=== PATIENT | female | born 1940 | race Caucasian/White ===

== ENCOUNTER → 2017-12-03 | Outpatient (CLI) | payer MEDICARE ==
[~2017-12-03] MED LIST: ASPIR 8181 MG PO; AVAPRO 150 MG150 MG PO; CIPRO500 MG PO; CRESTOR20 MG PO; LASIX 20 MG TAB20 MG PO; MEDROLDOSEPACK PO; METFORMIN HCL500 MG PO; NOHOMEMEDICATIONS; PEPCID20 MG PO
== END ==
LOC: M.ULTRA 09:59
DX: I73.9 Peripheral vascular disease, unspecified (principal); E11.9 Type 2 diabetes mellitus without complications; Z87.891 Personal history of nicotine dependence

== ENCOUNTER → 2018-04-19 | Outpatient (CLI) | payer MEDICARE | LOC: M.RAD 13:13 | DX: M47.816 Spondylosis without myelopathy or radiculopathy, lumbar region (principal); M16.0 Bilateral primary osteoarthritis of hip; M79.1 Myalgia ==

== ENCOUNTER → 2018-06-28 | Outpatient (CLI) | payer MEDICARE | LOC: M.RAD 12:56 | DX: R92.8 Other abnormal and inconclusive findings on diagnostic imaging of breast (principal) ==

== ENCOUNTER → 2018-07-05 | Outpatient (CLI) | payer MEDICARE | LOC: M.ULTRA 13:00 | DX: N63.20 Unspecified lump in the left breast, unspecified quadrant (principal) ==

== ENCOUNTER 2018-10-09 12:14 | Inpatient (IN) | payer MEDICARE ==
[~2018-10-09] VITALS: Ht 152.4 cm; Wt 80.7 kg
--- NOTE | ~2018-10-09 | CON ---
[address] [address] CONSULTATION Name: NELIA FARR Room: [address] IN .R.#: [id number] Admission: 10/09/18 Attend Phys: Miranda Corona Discharge: Date of : 44 Report #: [id number] THIS REPORT FOR: //name// CC: Dre Enrique DATE OF SERVICE: 10/11/2018 HISTORY OF PRESENT ILLNESS: This is a 78-year-old female patient who was evaluated by me for an episode of syncope. This patient states that she felt very hot. She was profusely sweating. She had no chest pain. She was conscious during this episode. She did not completely go out but almost fell out. There was no tonic-clonic activity. There was no postictal period and then, she returned back to her baseline. It happened in congregation and there was a physician in the restorationism and she examined the patient and asked her to go to the hospital. They did not have anything to check her blood pressure but apparently, the physician did see her pulse. Here, her blood pressure has been fluctuating a lot. It has been as low as 94 systolic and as high as 217 systolic. She has been followed by Cardiology and they are looking for any cardiological cause for the patient's symptoms. She was bradycardic at one time and her pulse was only 45. She never had this kind of episode and it was an unprovoked episode the best I understand. REVIEW OF SYSTEMS: Indicate that this patient had a cardiac history in the past. She also had cardiac surgeries in the past and she follows up with therapist's assistant at [facility]. She does have a history of knee replacement and as I understand, she had a history of hysterectomy and endarterectomy. That is from the records. She is on metformin as well as a cholesterol medication. She does not feel anxious and does not believe anxiety is a problem. Presently, she is back to her baseline and is not complaining of any eye, ENT, cardiac, respiratory, GI, , musculoskeletal, constitutional, dermatological, hematological, psychiatric, throat, allergic symptom, which are associated with present symptomatology. She does have a pretty significant cardiac history in the past. PAST MEDICAL HISTORY: Negative for this kind of spell or seizure. FAMILY HISTORY: Negative for early age stroke. SOCIAL HISTORY: She does not smoke or drink alcohol on a regular basis. PHYSICAL EXAMINATION: NEUROLOGICAL: Indicate the patient is alert, responsive and can follow simple commands. Her speech, concentration, fund of knowledge and memory is at her baseline. Cranial nerve examination 2 through 12 looks unremarkable. Neuromuscular examination is checked for strength, sensation, [place] [address] CONSULTATION Name: NELIA FARR Room: [address] IN [facility]#: [id number] Admission: 10/09/18 Attend Phys: Miranda Corona Discharge: Date of : 42 Report #: [id number] is symmetrical. There is no cerebellar sign. I could not look at the fundus. EXTREMITIES: Pulses are palpable. She has no edema, cyanosis or jaundice. CARDIAC: Examinations indicate that she had prior surgery. LUNGS: No respiratory difficulty or rhonchi was noticed. GENERAL: She is reasonably well-developed individual. HEENT: She does not have any dysmorphic features of eyes, ears and face. VITAL SIGNS: Her blood pressure is 140/53, respirations 16 and pulse has been low and it has gone into 40s. Temperature is 97.7. LABORATORY DATA: Indicates a white count of 8.7 and her sodium and potassium has been somewhat abnormal when she came in and when she is here. Her TSH was also normal. She did have a CTA of the head and neck that showed some stenosis on the right carotid but was otherwise unremarkable. She is very claustrophobic and thinking about the MRI. IMPRESSION AND RECOMMENDATIONS: The episode this patient had was most likely related to cardiac etiology. That may be vasovagal spell, but bradycardia can also be contributing. She does have a right carotid stenosis, but that appeared to be asymptomatic. She probably will follow up with vascular surgeons in that regard for monitoring that. I suggested MRI to complete the workup. She wants to think about that because she is pretty claustrophobic. She can get it done as an inpatient or get it done as an outpatient in open MRI if she cannot do it because the episode does not appear to be related to any neurological etiology. She will think about it and I talked to her in great detail about it and we will see what the therapist's assistant say and arrange an MRI to complete the workup. Thank you very much for this referral. By: 0951 47Damian Regan MD /patrick
--- NOTE | ~2018-10-09 | EEG ---
[address] [address] EEG STUDY REPORT Name: NELIA FARR Room: [address] IN [facility]#: [id number] Admission: 10/09/18 Attend Phys: Miranda Corona Discharge: Date of : 42 Report #: [id number] THIS REPORT FOR: //name// CC: Dre Enrique DATE OF SERVICE: 10/11/2018 This patient is being evaluated for near syncope. EEG was done by placing the electrodes by standard 10-20 system of electrode placement. Both referential and sequential montages were used for recording. Background activity in this patient's EEG is about 9 Hz and 20 microvolt. The patient became drowsy that is associated with bilateral slowing and vertex sharp waves. Photic stimulation is unremarkable. Throughout the record, no active epileptiform activity was noticed. IMPRESSION: This patient's EEG is within normal limit. Thank you very much for this referral. By: 1527 1537Damian Regan MD /patrick
[2018-10-09 12:19] VITALS: BP 185/59
[2018-10-09] MEDS ORDERED: HYDROCHLOROTHIA25 M2 PO (12:34)
[2018-10-09 13:04] LABS: ABSOLUTE BASOPHILS 0.1 thou/uL (0.0-0.2); ABSOLUTE EOSINOPHILS 0.2 thou/uL (0.0-0.7); ABSOLUTE MONOCYTES 0.7 thou/uL (0.0-1.2); ABSOLUTE NEUTROPHILS 6.2 thou/uL (1.6-8.1); BASOPHILS 0.8 %; EOSINOPHILS 2.1 %; HEMATOCRIT 39.1 % (37.0-47.0); HEMOGLOBIN 13.1 gm/dL (12.0-15.0); LYMPHOCYTES 22.3 %; MCH 28.9 pg (26.0-34.0); MCHC 33.5 g/dL (28.0-37.0); MCV 86.3 fL (80.0-100.0); MONOCYTES 7.1 %; NUCLEATED RBCS 0 /100WBC; PLATELET COUNT* 304 thou/uL (150-400); POLYS 67.7 %; RBC 4.53 mil/uL (4.20-5.00); RDW-CV 13.5 % (10.5-14.5); WBC 9.2 thou/uL (4.0-11.0)
[2018-10-09 13:16] LABS: ANION GAP 8 mmol/L (7-16); BUN 39 mg/dL (7-18); CALCIUM 9.5 mg/dL (8.5-10.1); CHLORIDE 99 mmol/L (98-107); CO2 26 mmol/L (21-32); GLUCOSE 126 mg/dL (70-99); POTASSIUM 4.5 mmol/L (3.5-5.1); SODIUM 133 mmol/L (136-145)
[2018-10-09 13:26] LABS: ALBUMIN 4.3 g/dL (3.4-5.0); ALKALINE PHOSPHATASE 101 U/L (46-116); LIPASE 289 U/L (73-393); NT-PRO BRAIN NAT PEPTIDE 1127 pg/mL (<300); SGOT 13 U/L (15-37); SGPT 20 U/L (30-65); TOTAL BILIRUBIN 0.5 mg/dL (<0.1-1.0); TOTAL PROTEIN 7.7 g/dL (6.4-8.2); TROPONIN-I LEVEL <0.06 ng/mL (<0.06)
[2018-10-09 13:41] LABS: URINE BILIRUBIN NEGATIVE (Negative); URINE BLOOD NEGATIVE (Negative); URINE CLARITY CLEAR; URINE COLOR YELLOW; URINE GLUCOSE-RANDOM NEGATIVE (Negative); URINE KETONES NEGATIVE (Negative); URINE LEUKOCYTES-REFLEX 1+ (Negative); URINE NITRITE-REFLEX NEGATIVE (Negative); URINE PROTEIN NEGATIVE (Negative); URINE SPECIFIC GRAVITY 1.015 (1.005-1.030); URINE UROBILINOGEN 0.2 E.U./dl (0.2-1.0)
[2018-10-09 13:49] LABS: SQUAMOUS 0-3 Few /LPF (0-3)
[2018-10-09 13:50] LABS: TRANSITIONAL EPITHEL CELL 0-3 Few /LPF (None Seen); WBC CLUMPS Few (None Seen)
[2018-10-09 13:51] LABS: CRYSTALS None Seen /LPF (None Seen); HYALINE CASTS 0-3 Few /LPF (None Seen); MUCUS 0-3 Light strn/LPF (None Seen); URINE RBC 0-2 Rare /HPF (0-2); URINE WBC-REFLEX 6-15 Few /HPF (0-5)
[2018-10-09 16:15] VITALS: BP 166/72
[2018-10-09 17:48] VITALS: BP 217/53
[2018-10-09 20:00] VITALS: BP 94/56
[2018-10-09 23:30] VITALS: BP 149/77
[2018-10-10 03:50] VITALS: BP 122/46
[2018-10-10 08:00] VITALS: BP 109/54
[2018-10-10 08:50] LABS: ABSOLUTE BASOPHILS 0.1 thou/uL (0.0-0.2); ABSOLUTE EOSINOPHILS 0.2 thou/uL (0.0-0.7); ABSOLUTE MONOCYTES 0.6 thou/uL (0.0-1.2); ABSOLUTE NEUTROPHILS 5.8 thou/uL (1.6-8.1); BASOPHILS 0.9 %; EOSINOPHILS 2.4 %; HEMATOCRIT 37.9 % (37.0-47.0); HEMOGLOBIN 12.7 gm/dL (12.0-15.0); LYMPHOCYTES 22.9 %; MCH 29.1 pg (26.0-34.0); MCHC 33.4 g/dL (28.0-37.0); MCV 86.9 fL (80.0-100.0); MONOCYTES 7.5 %; MPV 8.4 fl. (7.2-11.1); NUCLEATED RBCS 0 /100WBC; PLATELET COUNT* 282 thou/uL (150-400); POLYS 66.3 %; RBC 4.36 mil/uL (4.20-5.00); RDW-CV 13.5 % (10.5-14.5); WBC 8.7 thou/uL (4.0-11.0)
[2018-10-10 09:06] LABS: ALBUMIN 3.9 g/dL (3.4-5.0); ALKALINE PHOSPHATASE 94 U/L (46-116); ANION GAP 8 mmol/L (7-16); BUN 32 mg/dL (7-18); CALCIUM 9.4 mg/dL (8.5-10.1); CHLORIDE 101 mmol/L (98-107); CHOLESTEROL 181 mg/dL (<200); CO2 25 mmol/L (21-32); CREATININE 0.9 mg/dL (0.6-1.3); GLUCOSE 137 mg/dL (70-99); HDL CHOLESTEROL 57 mg/dL (>40); LDL CHOLESTEROL 106 mg/dL (<100); SGOT 11 U/L (15-37); SGPT 17 U/L (30-65); SODIUM 134 mmol/L (136-145); TC:HDL 3.2 Ratio (Not establshd); TOTAL BILIRUBIN 0.5 mg/dL (<0.1-1.0); TOTAL PROTEIN 7.2 g/dL (6.4-8.2); TRIGLYCERIDE 93 mg/dL (<150); VLDL 19 mg/dL (<40)
[2018-10-10 09:35] LABS: POTASSIUM 5.5 mmol/L (3.5-5.1)
[2018-10-10 10:20] LABS: SERUM ASSESSMENT Clear
[2018-10-10 12:02] VITALS: BP 150/47
--- NOTE | 2018-10-10 15:48 | 2DMMODE ---
[place] [address] 2 D/M-MODE ECHOCARDIOGRAM Name: NELIA FARR Room: [address] IN .R.#: [id number] Admission: 10/09/18 Attend Phys: Rey Enrique Discharge: Date of : 44 Date of Service: 10/10/18 1548 Report #: [id number] THIS REPORT FOR: //name// APPROVED REPORT Study performed: 10/10/2018 14:20:15 EXAM: Comprehensive 2D, Doppler, and color-flow Echocardiogram Patient Location: In-Patient Status: routine BSA: 1.76 HR: 58 bpm BP: 150/47 mmHg Other Information Study Quality: Good Indications Valvular murmur 2D Dimensions IVSd: 14.22 (7-11mm) LVOT Diam: 19.87 (18-24mm) LVDd: 32.29 mm PWd: 13.13 (7-11mm) Ascending Ao: 35.96 (22-36mm) LVDs: 26.09 (25-40mm) Aortic Root: 17.23 mm Volumes Left Atrial Volume (Systole) LA ESV Index: 27.00 mL/m2 Aortic Valve AoV Peak Armin.: 2.81 m/s AO Peak Gr.: 31.61 mmHg LVOT Max P.89 mmHg AO Mean Gr.: 17.37 mmHg LVOT Mean P.36 mmHg LVOT Max V: 1.11 m/s AO V2 VTI: 57.09 cm LVOT Mean V: 0.70 m/s SERENE (VTI): 1.51 cm2 LVOT V1 VTI: 27.72 cm Mitral Valve E/A Ratio: 0.94 MV Decel. Time: 165.76 ms MV E Max Armin.: 0.55 m/s MV PHT: 48.07 ms MVA (PHT): 4.58 [place]2 [place] [address] 2 D/M-MODE ECHOCARDIOGRAM Name: NELIA FARR Room: [address]#: [id number] Admission: 10/09/18 Attend Phys: Rey Enrique Discharge: Date of : 44 Date of Service: 10/10/18 1548 Report #: [id number] TDI E/Lateral E': 6.88 E/Medial E': 7.86 Medial E' Armin.: 0.07 m/s Lateral E' Armin.: 0.08 m/s Pulmonary Valve PV Peak Armin.: 1.11 m/s PV Peak Gr.: 4.95 mmHg Tricuspid Valve RAP Estimate: 5.00 mmHg TR Peak Gr.: 26.69 mmHg RVSP: 31.69 mmHg PA Pressure: 31.69 mmHg Left Ventricle The left ventricle is normal size. There is normal LV segmental wall motion. Mild concentric left ventricular hypertrophy. Left ventricular systolic function is normal. The left ventricular ejection fraction is within the normal range. LVEF is 50-55%. The left ventricular diastolic function is normal. Right Ventricle The right ventricle is normal size. The right ventricular systolic function is normal. Atria The left atrium size is normal. The right atrium size is normal. Aortic Valve Bioprosthetic aortic valve is present. No aortic regurgitation is present. Mild aortic stenosis. Mitral Valve The mitral valve is normal in structure. Trace mitral regurgitation. No evidence of mitral valve stenosis. Tricuspid Valve The tricuspid valve is normal in structure. Mild tricuspid regurgitation. estimate pa pressure 40 [place] [address] 2 D/M-MODE ECHOCARDIOGRAM Name: NELIA FARR Room: [address]#: [id number] Admission: 10/09/18 Attend Phys: Rey Enrique Discharge: Date of : 44 Date of Service: 10/10/18 1548 Report #: [id number] Pulmonic valve is not well visualized. Mild pulmonic regurgitation. Great Vessels The aortic root is normal in size. IVC is normal in size and collapses >50% with inspiration. Pericardium There is no pericardial effusion. <Conclusion> Mild concentric left ventricular hypertrophy. LVEF is 50-55%. Bioprosthetic aortic valve is present. Mild aortic stenosis. Mild tricuspid regurgitation. estimate pa pressure 40 mm Hg <ELECTRONICALLY SIGNED> By: Kobe Rothman MD, FACC 10/10/18 1548 1548 1548 Kobe Rothman MD, FACC /INF
[2018-10-10 16:00] VITALS: BP 111/60
[2018-10-10 20:00] VITALS: BP 123/45
[2018-10-11 00:44] VITALS: BP 155/99
[2018-10-11 04:00] VITALS: BP 143/87
[2018-10-11 07:51] VITALS: BP 140/53
[2018-10-11 12:00] VITALS: BP 156/65
[2018-10-11 16:00] VITALS: BP 136/46
[2018-10-11 20:29] VITALS: BP 187/70
[2018-10-12] VITALS (8 sets, daily range): BP systolic 58–195; BP diastolic 31–99
--- NOTE | 2018-10-12 12:35 | CON ---
[address] [address] CONSULTATION Name: NELIA FARR Room: [address] IN M.R.#: [id number] Admission: 10/09/18 Attend Phys: Miranda Corona Discharge: Date of : 42 Report #: [id number] THIS REPORT FOR: //name// CC: Dre Wilson DATE OF SERVICE: 10/10/2018 CARDIOLOGY CONSULTATION HISTORY OF PRESENT ILLNESS: The patient is a 78-year-old white female who I was asked to see in the hospital after she had a lightheaded spell. The history is obtained from the patient and her who is present. There is minimal old records available. The patient apparently was going to have shoulder surgery 2 years ago and she was noted to have a heart murmur. She was found to have evidence of aortic stenosis. She eventually underwent aortic valve replacement using a bovine valve at [facility], at which time, she also had a single vein graft bypass surgery done. She has done well since that time. She did go to cardiac rehabilitation. She states she has been feeling well recently. She went to orthodox yesterday. While in orthodox, she began to feel diaphoretic, lightheaded and had to sit down. She walked out of the orthodox. Ambulance was called. Apparently, her blood sugar was okay. Her blood pressure was noted to be elevated. She was brought here to [place] and admitted. I was asked to see her for further evaluation and treatment. She denies any chest pain, shortness of breath, palpitations or syncope. Denied any recent fever, bleeding or vomiting. PAST MEDICAL HISTORY: She has had knee surgery, hysterectomy, carpal tunnel surgery, tonsillectomy, left carotid endarterectomy at [facility], diabetes, hypertension and hyperlipidemia. MEDICATIONS: Her medications consist of aspirin, hydrochlorothiazide, Avapro, metformin and Crestor. ALLERGIES: SHE HAS INTOLERANCE TO SULFA DRUGS. FAMILY HISTORY: Her father had a stroke. SOCIAL HISTORY: She is . She and her live here in [place]. Quit smoking years ago. No alcohol abuse. REVIEW OF SYSTEMS: She has had no history of stroke, asthma, peptic ulcer disease, liver disease, kidney disease or chronic skin condition. PHYSICAL EXAMINATION: [place] [address] CONSULTATION Name: NELIA FARR Room: [address]#: [id number] Admission: 10/09/18 Attend Phys: Miranda Corona Discharge: Date of : 42 Report #: [id number] GENERAL: Revealed an elderly female lying in bed. She appeared in no distress. VITAL SIGNS: She had a blood pressure of 160/80, pulse was 60. She was afebrile. HEENT: She was anicteric. Conjunctivae were pink. Mucous membranes moist. NECK: Neck veins did not appear distended. No carotid bruits. Neck supple. CHEST: Clear to auscultation. CARDIAC EXAMINATION: Regular rate and rhythm. A grade 2 systolic ejection murmur. ABDOMEN: Obese. EXTREMITIES: Had no edema. Dorsalis pedis pulse could not be palpated. SKIN: Cool and dry. NEUROLOGICAL EXAMINATION: Nonfocal. LYMPH EXAMINATION: No adenopathy. MUSCULOSKELETAL EXAMINATION: No joint effusion. DIAGNOSTIC DATA: Her ECG on admission showed a sinus bradycardia. There was a rare PVC, nonspecific T-wave changes. Her workup in the Emergency Room yesterday, she had a portable chest x-ray that showed mild cardiomegaly, otherwise clear lung boss. She had a CT scan of the chest that showed a small pulmonary nodule, otherwise unremarkable. She had a CTA of the head that showed no evidence of intracranial hemorrhage. No high-grade stenosis noted. Short segment of 50% to 69% stenosis, right carotid artery. LABORATORY DATA: Sodium 134, BUN 32 and creatinine 0.9. Liver function studies were normal. Troponin 0.06. BNP 1127. Cholesterol 181, triglyceride 93, HDL 57 and LDL 106. White blood cell count 8.7 and hemoglobin 12.7. IMPRESSION AND RECOMMENDATIONS: 1. Dizzy spell. Possible vasovagal. I will recommend that she avoid dehydration. 2. Sinus bradycardia. If symptomatic, she would require pacemaker. 3. Hypertension. The patient has been on ARB and diuretic. Blood pressure noted to be elevated. 4. Previous aortic valve replacement. Recommend repeat echocardiogram. 5. Previous carotid endarterectomy. 6. Diabetes. 7. Hyperlipidemia. The patient is on a statin drug. <ELECTRONICALLY SIGNED> By: Kobe Rothman MD, FACC 10/12/18 1235 1025 1226Davimiranda Rothman MD, FACC /nt
[2018-10-12 14:04] LABS: ABSOLUTE BASOPHILS 0.1 thou/uL (0.0-0.2); ABSOLUTE EOSINOPHILS 0.2 thou/uL (0.0-0.7); ABSOLUTE LYMPHOCYTES 1.5 thou/uL (0.8-5.3); ABSOLUTE MONOCYTES 0.6 thou/uL (0.0-1.2); ABSOLUTE NEUTROPHILS 6.9 thou/uL (1.6-8.1); BASOPHILS 0.8 %; EOSINOPHILS 1.6 %; HEMATOCRIT 38.2 % (37.0-47.0); HEMOGLOBIN 12.9 gm/dL (12.0-15.0); LYMPHOCYTES 16.8 %; MCHC 33.8 g/dL (28.0-37.0); MCV 85.8 fL (80.0-100.0); MONOCYTES 6.3 %; MPV 7.7 fl. (7.2-11.1); NUCLEATED RBCS 0 /100WBC; PLATELET COUNT* 296 thou/uL (150-400); POLYS 74.5 %; RBC 4.46 mil/uL (4.20-5.00); RDW-CV 13.4 % (10.5-14.5); WBC 9.2 thou/uL (4.0-11.0)
[2018-10-12 14:18] LABS: CALCIUM 8.6 mg/dL (8.5-10.1); CREATININE 1.2 mg/dL (0.6-1.3); POTASSIUM 4.5 mmol/L (3.5-5.1)
[2018-10-12 14:19] LABS: MAGNESIUM 2.2 mg/dL (1.8-2.4); PHOSPHORUS* 4.5 mg/dL (2.5-4.9)
[2018-10-13] VITALS: BP 140/61
[2018-10-13 04:00] VITALS: BP 141/87
[2018-10-13 08:29] VITALS: BP 117/50
[2018-10-13 13:12] VITALS: BP 117/50
== END 2018-10-13 14:05 | disposition home or self-care (01) | DRG 312 ==
LOC: M.ERS 12:14 → M.2W 13:52 → M.TBA-ER 13:52 → M.2W 16:04
PROVIDERS: Emergency Medicine Emergency Medical Services; Internal Medicine; ADMIT Internal Medicine
DX: I95.1 Orthostatic hypotension (principal); I65.21 Occlusion and stenosis of right carotid artery; R00.1 Bradycardia, unspecified; Z96.659 Presence of unspecified artificial knee joint; E11.9 Type 2 diabetes mellitus without complications; I10 Essential (primary) hypertension; E78.5 Hyperlipidemia, unspecified; Z90.710 Acquired absence of both cervix and uterus; Z88.2 Allergy status to sulfonamides; Z88.8 Allergy status to other drugs, medicaments and biological substances; Z82.3 Family history of stroke; Z95.2 Presence of prosthetic heart valve; Z80.0 Family history of malignant neoplasm of digestive organs; Z79.82 Long term (current) use of aspirin; Z79.899 Other long term (current) drug therapy; Z95.828 Presence of other vascular implants and grafts; Z87.891 Personal history of nicotine dependence

== ENCOUNTER → 2019-03-01 | Outpatient (CLI) | payer MEDICARE ==
[~2019-03-01] MED LIST changes: +HYDROCHLOROTHIA25 M2 PO
== END ==
LOC: M.CT 10:18
DX: J84.10 Pulmonary fibrosis, unspecified (principal); R91.8 Other nonspecific abnormal finding of lung field; I70.0 Atherosclerosis of aorta; I25.10 Atherosclerotic heart disease of native coronary artery without angina pectoris

== ENCOUNTER 2019-07-18 15:06 | Inpatient (IN) | payer MEDICARE ==
[~2019-07-18] VITALS: Ht 152.4 cm; Wt 74.7 kg
--- NOTE | ~2019-07-18 | PROC ---
[address] [address] PROCEDURE REPORT Name: NELIA FARR Room: [address]#: [id number] Admission: 07/18/19 Attend Phys: Miranda Corona Discharge: 07/21/19 Date of : 42 Report #: [id number] THIS REPORT FOR: //name// For GI report, please see the Provation report in Perceptive 7 content. By: 0705Medical Records Staff DEVANTE /BRANDON
--- NOTE | ~2019-07-18 | CON ---
[address] [address] CONSULTATION Name: NELIA FARR Room: [address] IN .R.#: [id number] Admission: 07/18/19 Attend Phys: Miranda Corona Discharge: Date of : 42 Report #: [id number] THIS REPORT FOR: //name// CC: Dre Schmitt DO Rey Enrique DICTATED BY: Karla Lucas [facility] DATE OF SERVICE: 07/19/2019 Please note at the time of this dictation, the patient was seen and physically examined by myself. REASON FOR CONSULTATION: Acute anemia and positive occult. HISTORY OF PRESENT ILLNESS: This is a pleasant 78-year-old female, who presented to the Emergency Room with having feeling of a warm sensation and being very dizzy. She was very pale in color and diaphoretic. It was noted on admission that she was anemic at 6.2. She got a unit of blood, which her raised up to 7.2. She said that the first she had ever heard that she was anemic was back in May when she was going to have endarterectomy done, but did not require any blood transfusion. She states she has been taking some iron. She states that she has been taking some iron; however, prior to all of that, she states her stools have been a little dark, but they had changed to very darker in nature. Prior to be in admission, she has had 2 bowel movements last night. She states that were brown in color. However, she did have a positive Hemoccult. She states that normally she has a tendency towards constipation and may not go for a couple of days; however, over the past week or so, she has had several bowel movements small in caliber, but more than what she normally has. The patient states she had a colonoscopy back in 2003 at [facility]. She does not recall what it showed. She had had another colonoscopy done since that time. She does not recall what that showed. On one of the colonoscopy, she was told that she did have some small polyps, but nothing to worry about. We will attempt to get those records at [facility] to see if any validity to that. The patient denies any issues with acid reflux. She has not been taking any ibuprofen or Aleve on a regular basis. She has just intermittently she states. She denies any abdominal pain. ALLERGIES: SULFA, CEPHALEXIN and STATINS. PAST MEDICAL HISTORY: She has had a PE back in March of this year, coronary artery disease, diabetic, and hypertension. PAST SURGICAL HISTORY: Knee replacement, endarterectomy, hysterectomy, [place] [address] CONSULTATION Name: NELIA FARR Room: [address] IN [facility]#: [id number] Admission: 07/18/19 Attend Phys: Miranda Corona Discharge: Date of : 42 Report #: [id number] MEDICATIONS: From home include metformin, aspirin, rosuvastatin, Avapro, warfarin and Plavix. FAMILY HISTORY: Brother significant for colorectal cancer, sister significant for thyroid and stomach cancer. SOCIAL HISTORY: Denies any alcohol, tobacco or illegal drug use at this time. REVIEW OF SYSTEMS: Twelve-point review of systems is essentially negative except what is mentioned in the history of present illness. PHYSICAL EXAMINATION: VITAL SIGNS: Temperature 36.7, pulse 64, respirations 18, and blood pressure 123/49. HEART: Regular rate and rhythm. LUNGS: Diminished, but clear. ABDOMEN: Soft, positive bowel sounds in all 4 quadrants with no masses or tenderness noted. LABORATORY DATA: Hemoglobin on admission was 6.2, got a unit of blood, she is 7.2, white count is 6.4 and platelets are 392. BUN is 23, creatinine is 1.1. PT is 25.1, INR is 2.5, GFR is 48. DIAGNOSTIC DATA: CT angio of the abdomen and pelvis shows possible Meckel diverticulum, proximal small bowel wall thickening versus distention with possible enteritis. IMPRESSION: 1. Acute anemia. 2. Positive occult. 3. Hematochezia. 4. Shortness of air. 5. Fatigue. 6. Anticoagulant therapy, warfarin, Plavix and aspirin secondary to history of pulmonary embolism and valve replacement. 7. Family history: Brother with colorectal cancer and sister with thyroid and stomach cancer. PLAN: 1. Obtain records from [facility]. 2. The patient will need endoscopic evaluation for evaluation of her anemia. We will discuss with Dr. Tabares because she will have to remain on her anticoagulant therapy. 3. Further recommendations to be made once Dr. Tabares has seen the patient. [address] [address] CONSULTATION Name: NELIA FARR Room: M.222-P ADM IN M.R.#: [id number] Admission: 07/18/19 Attend Phys: Miranda Corona Discharge: Date of : 42 Report #: [id number] Thank you for allowing us to participate in this patient's care. Please do not hesitate to call with any questions in regard to this consult. By: 1145 1226Padmini Tabares MD /nt
[2019-07-18 15:20] VITALS: BP 119/47
[2019-07-18] MEDS ORDERED: COUMADIN 5 MG TA5 M1 PO (15:27)
[2019-07-18] MEDS ORDERED: PLAVIX 75 MG TA75 MG PO (15:27)
[2019-07-18 15:51] LABS: ABSOLUTE BASOPHILS 0.1 thou/uL (0.0-0.2); ABSOLUTE EOSINOPHILS 0.2 thou/uL (0.0-0.7); ABSOLUTE LYMPHOCYTES 1.2 thou/uL (0.8-5.3); ABSOLUTE MONOCYTES 0.5 thou/uL (0.0-1.2); ABSOLUTE NEUTROPHILS 4.5 thou/uL (1.6-8.1); BASOPHILS 0.8 %; EOSINOPHILS 3.1 %; LYMPHOCYTES 18.9 %; MCH 26.1 pg (26.0-34.0); MCHC 32.2 g/dL (28.0-37.0); MCV 81.2 fL (80.0-100.0); MONOCYTES 7.2 %; MPV 7.1 fl. (7.2-11.1); NUCLEATED RBCS 0 /100WBC; PLATELET COUNT* 392 thou/uL (150-400); RBC 2.44 mil/uL (4.20-5.00); RDW-CV 17.3 % (10.5-14.5); WBC 6.4 thou/uL (4.0-11.0)
[2019-07-18 16:00] LABS: HEMOGLOBIN 6.4 gm/dL (12.0-15.0)
[2019-07-18 16:04] LABS: CALCIUM 8.4 mg/dL (8.5-10.1); CREATININE 1.1 mg/dL (0.6-1.3); POTASSIUM 4.2 mmol/L (3.5-5.1)
[2019-07-18 16:08] LABS: APTT 36.5 Seconds (25.0-31.3); INR 2.5; PROTIME 25.1 Seconds (9.20-11.50)
[2019-07-18 16:11] LABS: ALBUMIN 3.2 g/dL (3.4-5.0); TOTAL BILIRUBIN 0.2 mg/dL (<0.1-1.0); TOTAL PROTEIN 6.3 g/dL (6.4-8.2)
[2019-07-18 17:46] LABS: HEMATOCRIT 19.8 % (37.0-47.0)
[2019-07-18 18:27] LABS: URINE BILIRUBIN NEGATIVE (Negative); URINE BLOOD NEGATIVE (Negative); URINE CLARITY CLEAR; URINE COLOR YELLOW; URINE GLUCOSE-RANDOM NEGATIVE (Negative); URINE KETONES NEGATIVE (Negative); URINE LEUKOCYTES-REFLEX NEGATIVE (Negative); URINE NITRITE-REFLEX POSITIVE (Negative); URINE PROTEIN NEGATIVE (Negative); URINE UROBILINOGEN 0.2 E.U./dl (0.2-1.0)
[2019-07-18 18:32] LABS: BACTERIA-REFLEX >30 Many /HPF (None Seen); MUCUS None Seen strn/LPF (None Seen); SQUAMOUS >10 Many /LPF (0-3); URINE WBC-REFLEX 6-15 Few /HPF (0-5)
[2019-07-18 18:34] LABS: CASTS None Seen /LPF (None Seen); CRYSTALS None Seen /LPF (None Seen); URINE RBC None Seen /HPF (0-2)
[2019-07-18 18:41] VITALS: BP 149/59
[2019-07-18 19:40] VITALS: BP 117/44
--- NOTE | 2019-07-18 19:47 | NUR ---
PT ARRIVED TO ROOM 222 FROM ER AT APPROX 1855. ORIENTED TO ROOM AND STAFF. REPORT GIVEN TO SHARON FRANCISCO
[2019-07-18 21:33] LABS: HEMOGLOBIN 6.2 gm/dL (12.0-15.0)
[2019-07-18 21:34] LABS: HEMATOCRIT 19.6 % (37.0-47.0)
[2019-07-18 22:15] VITALS: BP 126/47; BP 126/51; BP 132/54; BP 139/52; BP 147/53
[2019-07-19 04:00] VITALS: BP 149/50
[2019-07-19 04:46] LABS: HEMATOCRIT 22.4 % (37.0-47.0); HEMOGLOBIN 7.2 gm/dL (12.0-15.0)
--- NOTE | 2019-07-19 06:26 | NUR ---
PT CARE ASSUMED AT 1930. SAT MAINTAINED IN O2. ALERT AND ORIENTED X4. CALL LIGHT WITHIN REACH AND BED IN LOW POSITION. DENIES PAIN. 1 UNIT OF BLOOD TRANSFUSED. HOURLY ROUNDING DONE FOR PT SAFETY.
[2019-07-19 08:11] VITALS: BP 123/49
--- NOTE | 2019-07-19 09:13 | NUR ---
ASSUMED CARE OF PT THIS AM AROUND 0715- PET FEEDER IN PLACE ORDERED, TRACING SB/1ST DEGREE/ BBB- UPON ASSESSMENT PT NOTED TO BE RESTING IN BED, EYES CLOSED- PT A&O X4- STRESS INCONTINENTS NOTED- SBA WITH TRANSFERS- LCTA, RESP EVEN AND UN-LABORED- VSS, O2 SAT 99% ON 2L VIA NC- ABD SOFT/ROUND/NON-TENDER, BS X4 QUADS- LAST BM REPORTED 07/18/19- IV NOTED TO LEFT AC INTACT AND SL- GOOD PO INTAKE NOTED THIS AM WITH BREAKFAST, BS MONITORED PRESCRIBED- +1 BLE EDEMA NOTED- PT DENIES ANY C/O PAIN/DISCOMFORT AT THIS TIME- CALL LIGHT AND PERSONAL BELONGINGS WITH IN REACH- HOURLY ROUNDS IN PLACE R/T SAFETY/NEEDS- ALL NEEDS MET AT THIS TIME-WCTM
--- NOTE | 2019-07-19 09:44 | EKG ---
[place] [address] ELECTROCARDIOGRAM REPORT Name: NELIA FARR Room: [address] ADM IN .R.#: [id number] Admission: 07/18/19 Attend Phys: Miranda Corona Discharge: Date of : 42 Report #: [id number] THIS REPORT FOR: //name// [facility] ED Test Date: 2019-07-18 Test Time: 15:17:12 Pat Name: NELIA FARR Department: Room: [facility] Gender: F Rn Liaison: UNKNOWN : 1940 Requested By: Luis M Dawson Order Number: [id number] MD: Kobe Rothman Measurements Intervals Star Rate: 61 P: [place]: QRS: 43 QRSD: 86 T: 127 QT: 455 QTc: 459 Interpretive Statements sinus rhythm Abnormal T, consider ischemia, lateral leads Compared to ECG 10/09/2018 12:39:39 Sinus bradycardia no longer present T-wave abnormality still present Possible ischemia still present Electronically Signed On 07-19-2019 9:43:54 REVENUE FIELD AGENT by Kobe Rothman [email or web address] <ELECTRONICALLY SIGNED> By: Kobe Rothman MD, FACC 07/19/19 0943 1517 1517 Kobe Rothman MD, [facility] /EPI
[2019-07-19 09:51] VITALS: BP 123/49
--- NOTE | 2019-07-19 09:55 | EKG ---
[place] [address] ELECTROCARDIOGRAM REPORT Name: NELIA FARR Room: [address] ADM IN M.R.#: [id number] Admission: 07/18/19 Attend Phys: Miranda Corona Discharge: Date of : 44 Report #: [id number] THIS REPORT FOR: //name// [facility] Test Date: 2019-07-19 Test Time: 03:01:50 Pat Name: NELIA FARR Department: Room: [address] Gender: F Dermatologist And Dermatopathologist: [id number] : 1940 Requested By: Rey Enrique Order Number: [id number] Bob MD: Kobe Rothman Measurements Intervals [place] Rate: 59 P: [place]: QRS: 38 QRSD: 79 T: 135 QT: 446 QTc: 442 Interpretive Statements sinus bradycardia Anterior infarct, old Nonspecific T abnormalities, lateral leads Electronically Signed On 07-19-2019 9:54:52 TELEVISION INSTALLER HELPER by Kobe Rothman [email or web address] <ELECTRONICALLY SIGNED> By: Kobe Rothman MD, [facility] 07/19/19 0954 0 0 Kobe Rothman MD, FACC /EPI
--- NOTE | 2019-07-19 11:30 | NUR ---
MET WITH PT AND SPOUSE TO DISCUSS HOME SITUATION/DC PLANNING. PT LIVES WITH SPOUSE, WORKS VOLUNTEER IN HOSPITAL. PT IS INDEPENDENT AND ACTIVE. HAS CANE AND WALKER BUT DOENS'T USE. SHE HAS HAD HH IN PAST AND BEEN TO CARDIAC REHAB ALSO. PT DENIES NEEDS AT THIS TIME. WILL FOLLOW
[2019-07-19 11:54] VITALS: BP 120/43
--- NOTE | 2019-07-19 15:22 | NUR ---
TOOK REPORT FROM MARYAM GEORGE. WENT IN AND ASSESSED PT, VSS AT THIS TIME. PT TO START BOWEL PREP THIS SHIFT FOR EGD & COLONOSCOPY TOMORROW. PT CHANGED TO CLD THIS SHIFT AND TOLD ABOUT THE CHANGE IN DIET BOWEL PREP PENDING. WILL GET PREP STARTED. THIS RN WILL GIVE TO MARYAM LIU TO CONTINUE CARE THIS SHIFT.
[2019-07-19 16:02] VITALS: BP 102/48
[2019-07-19 19:30] VITALS: BP 112/68
[2019-07-20] VITALS: BP 118/49
[2019-07-20 04:00] VITALS: BP 102/72
--- NOTE | 2019-07-20 04:14 | NUR ---
ASSUMED CARE OF PT AT 1900. PT IS ALERT AND ORIENTED. VSS. PERRLA. NO COMPLAINTS OF PAIN. PT STATES THAT SHE IS UNABLE TO DRINK HER GOLYTLY. DR REYNA NOTIFIED. GI PROCEDURE CANCELLED UNTIL TOMORROW. PT IS IN SINUS RYTHM ON THE TELEMETRY. PT IS RESTING COMFORTABLY IN BED. RESPIRATIONS ARE EVEN AND NONLABORED. WILL CONTINUE TO MONITOR PT.
[2019-07-20 04:57] LABS: HEMATOCRIT 22.7 % (37.0-47.0); HEMOGLOBIN 7.2 gm/dL (12.0-15.0); MCHC 31.7 g/dL (28.0-37.0); MCV 82.1 fL (80.0-100.0); MPV 7.2 fl. (7.2-11.1); RBC 2.76 mil/uL (4.20-5.00); RDW-CV 17.3 % (10.5-14.5); WBC 5.8 thou/uL (4.0-11.0)
[2019-07-20 05:27] LABS: CALCIUM 8.7 mg/dL (8.5-10.1); CREATININE 0.6 mg/dL (0.6-1.3); MAGNESIUM 1.8 mg/dL (1.8-2.4); POTASSIUM 4.6 mmol/L (3.5-5.1); TOTAL BILIRUBIN 0.2 mg/dL (<0.1-1.0); TOTAL PROTEIN 5.9 g/dL (6.4-8.2)
[2019-07-20 07:00] VITALS: BP 121/44
--- NOTE | 2019-07-20 08:46 | NUR ---
INITAL ASSESSMENT COMPLETED CHARTED. VSS. TRACING SR ON MONITOR. PT DENIES PAIN, SOA, N/V/D. NO NEW CONCERNS AT THIS TIME. HOURLY ROUNDING IN PLACE FOR PT SAFETY. CLWR.
[2019-07-20 12:02] VITALS: BP 108/50
[2019-07-20 13:17] LABS: INR 1.5; PROTIME 14.7 Seconds (9.20-11.50)
[2019-07-20 16:45] VITALS: BP 94/52
[2019-07-20 20:34] VITALS: BP 134/52
[2019-07-21] VITALS: BP 146/74
[2019-07-21 04:00] VITALS: BP 124/44
[2019-07-21 04:28] LABS: ABSOLUTE EOSINOPHILS 0.2 thou/uL (0.0-0.7); ABSOLUTE LYMPHOCYTES 1.2 thou/uL (0.8-5.3); ABSOLUTE MONOCYTES 0.4 thou/uL (0.0-1.2); ABSOLUTE NEUTROPHILS 3.1 thou/uL (1.6-8.1); BASOPHILS 0.7 %; HEMATOCRIT 22.2 % (37.0-47.0); MCH 25.9 pg (26.0-34.0); MCHC 31.6 g/dL (28.0-37.0); MCV 81.9 fL (80.0-100.0); MONOCYTES 8.4 %; MPV 7.2 fl. (7.2-11.1); NUCLEATED RBCS 0 /100WBC; PLATELET COUNT* 330 thou/uL (150-400); POLYS 62.9 %; RBC 2.71 mil/uL (4.20-5.00); RDW-CV 16.8 % (10.5-14.5)
[2019-07-21 04:38] LABS: CALCIUM 8.9 mg/dL (8.5-10.1); CREATININE 0.6 mg/dL (0.6-1.3); POTASSIUM 4.1 mmol/L (3.5-5.1)
[2019-07-21 04:40] LABS: INR 1.3; PROTIME 13.2 Seconds (9.20-11.50)
--- NOTE | 2019-07-21 05:47 | NUR ---
PT IS ABLE TO COMMUNICATE HER NEEDS TO STAFF EFFECTIVELY. SHE HAS DENIED THE NEED FOR PAIN MEDICATION UP TO THIS TIME. PT RECEIVED DULCOLAX AND MIRALAX DOSES YESTERDAY AFTERNOON AND HAS HAD SEVERAL BMs SINCE; STOOL IS WATERY BUT STILL BROWN, GI MD WILL BE INFORMED THIS MORNING. SHE HAS BEEN NPO SINCE MIDNIGHT FOR A POSSIBLE EGD/COLONOSCOPY LATER TODAY.
[2019-07-21 07:00] VITALS: BP 140/54
--- NOTE | 2019-07-21 08:37 | NUR ---
INITAL ASSESSMENT COMPLETED CHARTED. VSS. TRACING SB ON MONITOR. PT REAL PAIN, N/V, CP, SOA. PT IS HESITANT ABOUT FINISHING BOWEL PREP. EDUCATION GIVEN ON BOWEL PREP, PT VOICES UNDERSTANDING. HOURLY ROUNDING IN PLACE FOR PT SAFETY. CLWR.
== END 2019-07-21 15:30 | disposition home or self-care (01) | DRG 378 ==
LOC: M.ERS 15:06 → M.2W 16:29 → M.TBA-ER 16:29 → M.2W 19:00
PROVIDERS: Family Medicine; Internal Medicine; ADMIT Internal Medicine
DX: K92.2 Gastrointestinal hemorrhage, unspecified (principal); N17.9 Acute kidney failure, unspecified; E44.0 Moderate protein-calorie malnutrition; M19.90 Unspecified osteoarthritis, unspecified site; D64.9 Anemia, unspecified; I11.0 Hypertensive heart disease with heart failure; E78.5 Hyperlipidemia, unspecified; I50.9 Heart failure, unspecified; E11.9 Type 2 diabetes mellitus without complications; I70.0 Atherosclerosis of aorta; I70.8 Atherosclerosis of other arteries; Z90.710 Acquired absence of both cervix and uterus; Z88.2 Allergy status to sulfonamides; Z88.8 Allergy status to other drugs, medicaments and biological substances; Z80.8 Family history of malignant neoplasm of other organs or systems; Z80.0 Family history of malignant neoplasm of digestive organs; Z79.01 Long term (current) use of anticoagulants; Z86.711 Personal history of pulmonary embolism; Z95.2 Presence of prosthetic heart valve; Z79.82 Long term (current) use of aspirin; Z79.899 Other long term (current) drug therapy; Z68.32 Body mass index [BMI] 32.0-32.9, adult

== ENCOUNTER → 2019-09-15 | Outpatient (CLI) | payer MEDICARE ==
[~2019-09-15] MED LIST changes: +COUMADIN 5 MG TA5 M1 PO; +PLAVIX 75 MG TA75 MG PO
[2019-09-15 13:05] VITALS: BP 128/62
[2019-09-15 14:10] VITALS: BP 132/70
--- NOTE | 2019-09-15 14:21 | NUR ---
ARRIVED AMBULATORY. MADE SELF COMFORTABLE IN RECLINER. IV STARTED WITH OUT DIFFICULTY. INFUSION COMPLETED AND TOELRATED WELL. IV FLUSHED AND LEFT IN PLACE FOR USE WITH NEXT INFUSION OF SAME.
== END ==
LOC: M.INFUS 11:00
DX: D50.9 Iron deficiency anemia, unspecified (principal)

== ENCOUNTER → 2019-09-18 | Outpatient (CLI) | payer MEDICARE ==
[2019-09-18 12:35] VITALS: BP 127/84
--- NOTE | 2019-09-18 14:48 | NUR ---
ARRIVED AMBULATORY. MADE SELF COMFORTABLE IN RECLINER. DENIES ADVERSE REACTION TO PRIOR INFUSION OF SAME. INFUSION COMPLETED AND TOLERATED WELL. DENIES QUESTIONS OR NEEDS AT DISCHARGE.
== END ==
LOC: M.INFUS 01:25
DX: D50.9 Iron deficiency anemia, unspecified (principal)

== ENCOUNTER → 2019-09-21 | Outpatient (CLI) | payer MEDICARE ==
[2019-09-21 12:20] VITALS: BP 150/98
== END ==
LOC: M.INFUS 01:48
DX: D50.9 Iron deficiency anemia, unspecified (principal)

== ENCOUNTER → 2019-09-24 | Outpatient (CLI) | payer MEDICARE | LOC: M.INFUS 12:30 | DX: D50.9 Iron deficiency anemia, unspecified (principal) ==

== ENCOUNTER → 2019-09-27 | Outpatient (CLI) | payer MEDICARE ==
[2019-09-27 13:35] VITALS: BP 143/71
--- NOTE | 2019-09-27 14:56 | NUR ---
DENEIS ADVERSE REACTION TO MULTIPLE PRIOR INFUSIONS OF SAME. IV INTACT AND PATENT FROM LAST INFUSION. INFUSION COMPLETED AND TOELRATED WELL. DENIES QUESTIONS OR NEEDS AT DISCHARGE.
== END ==
LOC: M.INFUS 05:03
DX: D50.9 Iron deficiency anemia, unspecified (principal)

== ENCOUNTER → 2019-11-02 | Outpatient (CLI) | payer MEDICARE | LOC: M.CT 13:05 | DX: J84.10 Pulmonary fibrosis, unspecified (principal); R91.8 Other nonspecific abnormal finding of lung field; I25.10 Atherosclerotic heart disease of native coronary artery without angina pectoris ==

== ENCOUNTER 2020-07-20 10:10 | Emergency (ER) | payer MEDICARE ==
[~2020-07-20] VITALS: Ht 152.4 cm; Wt 77.1 kg
[2020-07-20] MEDS ORDERED: NORVASC 2.5 MG2.5 M1 PO (10:28)
[2020-07-20] MEDS ORDERED: JARDIANCE10 MG PO (10:28)
[2020-07-20] MEDS ORDERED: ISOSORBIDE DINI30 MG PO (10:29)
[2020-07-20] MEDS ORDERED: CLOPIDOGREL75 MG PO (10:29)
[2020-07-20] MEDS ORDERED: IRBESARTAN300 MG PO (10:30)
[2020-07-20] MEDS ORDERED: TRULICITY0.75 MG/0. SUBQ (10:31)
[2020-07-20] MEDS ORDERED: REPATHA SY140 MG/1 M SUBQ (10:33)
[2020-07-20] MEDS ORDERED: ULTRAM50 MG PO (12:30)
[2020-07-20 12:49] VITALS: BP 155/63
== END 2020-07-20 12:49 | disposition home or self-care (01) ==
LOC: M.ERS 10:10
DX: S62.647A Nondisplaced fracture of proximal phalanx of left little finger, initial encounter for closed fracture (principal); S00.83XA Contusion of other part of head, initial encounter; S80.02XA Contusion of left knee, initial encounter; M19.90 Unspecified osteoarthritis, unspecified site; Z90.711 Acquired absence of uterus with remaining cervical stump; Z79.899 Other long term (current) drug therapy; Z88.1 Allergy status to other antibiotic agents; Z88.2 Allergy status to sulfonamides; Z88.8 Allergy status to other drugs, medicaments and biological substances; Z96.652 Presence of left artificial knee joint; W01.198A Fall on same level from slipping, tripping and stumbling with subsequent striking against other object, initial encounter; Y93.89 Activity, other specified; Y92.59 Other trade areas as the place of occurrence of the external cause; Y99.8 Other external cause status

== ENCOUNTER → 2021-06-12 | Outpatient (CLI) | payer MEDICARE ==
[~2021-06-12] MED LIST changes: +CLOPIDOGREL75 MG PO; +IRBESARTAN300 MG PO; +ISOSORBIDE DINI30 MG PO; +JARDIANCE10 MG PO; +NORVASC 2.5 MG2.5 M1 PO; +REPATHA SY140 MG/1 M SUBQ; +TRULICITY0.75 MG/0. SUBQ; +ULTRAM50 MG PO
== END ==
LOC: M.RAD 13:09
PROVIDERS: ATTEND Family Medicine
DX: Z12.31 Encounter for screening mammogram for malignant neoplasm of breast (principal)

== ENCOUNTER → 2021-07-15 | Outpatient (CLI) | payer MEDICARE | LOC: M.LAB 16:20 | PROVIDERS: ATTEND Internal Medicine Critical Care Medicine | DX: R06.02 Shortness of breath (principal) ==

== ENCOUNTER → 2021-07-24 | Outpatient (CLI) | payer MEDICARE | LOC: M.PUL 13:35 | PROVIDERS: ATTEND Surgery Vascular Surgery | DX: I65.23 Occlusion and stenosis of bilateral carotid arteries (principal); R06.02 Shortness of breath ==

== ENCOUNTER → 2021-08-08 | Outpatient (CLI) | payer MEDICARE ==
[2021-08-08 09:06] LABS: CREATININE 0.8 mg/dL (0.6-1.3)
== END ==
LOC: M.LAB 07-25 10:14 → M.CT 09:00
PROVIDERS: ATTEND Internal Medicine Critical Care Medicine
DX: J98.11 Atelectasis (principal); K44.9 Diaphragmatic hernia without obstruction or gangrene; I70.0 Atherosclerosis of aorta; R91.8 Other nonspecific abnormal finding of lung field; M47.815 Spondylosis without myelopathy or radiculopathy, thoracolumbar region; M41.84 Other forms of scoliosis, thoracic region; Z95.2 Presence of prosthetic heart valve